=== PATIENT | female | born 1935 | race Caucasian/White ===

== ENCOUNTER 2017-03-22 12:04 | Outpatient (CLI) | payer MEDICARE ==
--- NOTE | 2017-03-22 12:56 | XRay Report ---
ROUTINE CHEST, TWO VIEWS: HISTORY: Asthma, shortness of breath. The trachea, heart, mediastinal contour, lung vargas and bony thorax are unremarkable. Moderate thoracic spondylosis is noted. IMPRESSION: Unremarkable chest x-ray.
== END 2017-03-22 12:05 | disposition home or self-care (01) ==
LOC: XRAY 12:04
PROVIDERS: ATTEND Internal Medicine
DX: J45.901 Unspecified asthma with (acute) exacerbation (principal)
CPT/HCPCS: 71020

== ENCOUNTER 2018-09-28 08:34 | Outpatient (CLI) | payer MEDICARE ==
[2018-09-28 10:42] LABS: Chol/HDL Ratio 2.35 %
== END 2018-09-28 08:35 | disposition home or self-care (01) ==
LOC: LAB 08:34
PROVIDERS: ATTEND Internal Medicine
DX: E78.5 Hyperlipidemia, unspecified (principal); E11.9 Type 2 diabetes mellitus without complications; I10 Essential (primary) hypertension; M19.90 Unspecified osteoarthritis, unspecified site
CPT/HCPCS: 36415; 80061; 82306; 83036

== ENCOUNTER 2020-08-13 09:55 | Outpatient (CLI) | payer MEDICARE ==
[2020-08-13 11:31] LABS: Albumin 4.3 g/dL (3.9-5); Calcium 9.4 mg/dL (8.4-10.2); Chol/HDL Ratio 2.13 %
== END 2020-08-13 09:56 | disposition home or self-care (01) ==
LOC: LAB 09:55
PROVIDERS: ATTEND Internal Medicine
DX: E78.5 Hyperlipidemia, unspecified (principal); E11.9 Type 2 diabetes mellitus without complications; N18.9 Chronic kidney disease, unspecified
CPT/HCPCS: 36415; 80053; 80061; 83036

== ENCOUNTER 2021-01-30 10:36 | Outpatient (CLI) | payer MEDICARE ==
--- NOTE | 2021-01-30 14:13 | XRay Report ---
RIGHT KNEE 2 VIEW(S) INDICATION / CLINICAL INFORMATION: PAIN IN RIGHT KNEE COMPARISON: None available. FINDINGS: BONES / JOINT(S): No acute fracture or subluxation. 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 SOFT TISSUES: No significant abnormality. ADDITIONAL FINDINGS: Moderate-sized joint effusion. Signer Name: Hi Colmenares MD Signed: 01/30/2021 2:08 PM Workstation Name: [id number]
== END 2021-01-30 10:37 | disposition home or self-care (01) ==
LOC: LAB 10:36
PROVIDERS: ATTEND Internal Medicine
DX: M17.11 Unilateral primary osteoarthritis, right knee (principal)

== ENCOUNTER 2021-03-24 09:42 | Outpatient (CLI) | payer MEDICARE ==
[2021-03-24 10:11] LABS: Basophils % (Auto) 0.4 % (0.0-1.8); Eosinophils # (Auto) 0.3 K/mm3 (0.0-0.4); Eosinophils % (Auto) 2.7 % (0.0-4.3); Hematocrit 39.9 % (30.3-42.9); Hemoglobin 13.3 gm/dl (10.1-14.3); Lymphocytes # (Auto) 2.5 K/mm3 (1.2-5.4); Lymphocytes % (Auto) 25.6 % (13.4-35.0); Mean Corpuscular HGB Conc 33 % (30-34); Mean Corpuscular Volume 91 fl (79-97); Monocytes # (Auto) 0.8 K/mm3 (0.0-0.8); Monocytes % (Auto) 7.9 % (0.0-7.3); Platelet Count 421 K/mm3 (140-440); Red Blood Count 4.37 M/mm3 (3.65-5.03); Red Cell Distribution Width 14.5 % (13.2-15.2)
[2021-03-24 10:41] LABS: Albumin 4.4 g/dL (3.9-5); Calcium 10.2 mg/dL (8.4-10.2); Chol/HDL Ratio 2.64 %
== END 2021-03-24 09:43 | disposition home or self-care (01) ==
LOC: LAB 09:42
PROVIDERS: ATTEND Internal Medicine
DX: Z13.29 Encounter for screening for other suspected endocrine disorder (principal); Z00.00 Encounter for general adult medical examination without abnormal findings; E11.9 Type 2 diabetes mellitus without complications; E78.5 Hyperlipidemia, unspecified; I10 Essential (primary) hypertension; E55.9 Vitamin D deficiency, unspecified
CPT/HCPCS: 36415; 80053; 80061; 82306; 83036; 84443; 85025